=== PATIENT | female | born 1990 | race Two or more races ===

== ENCOUNTER 2019-02-27 13:44 | Emergency (ER) | payer BC, MEDICAID ==
[~2019-02-27] VITALS: Ht 149.9 cm; Wt 59.0 kg
[2019-02-27 15:31] LABS: Albumin 3.8 g/dL (3.4-5.0); Calcium 8.7 mg/dL (8.5-10.1); Potassium 3.9 mmol/L (3.5-5.1)
[2019-02-27 15:33] LABS: Bilirubin, Total 0.6 mg/dL (0.2-1.0); Total Protein 7.5 g/dL (6.4-8.2)
[2019-02-27 17:24] LABS: Basophils # (auto) 0 uL; Basophils % (auto) 0.6 % (0.0-2.0); Eosinophils # (auto) 0 uL; Eosinophils % (auto) 0.5 % (0.0-7.0); Hematocrit 43.2 % (36.0-46.0); Hemoglobin 14.1 g/dL (12.2-16.2); Lymphocytes # (auto) 1.4 uL; Lymphocytes % (auto) 20.9 % (10.0-50.0); Mean Corpuscular Hemoglobin 29.3 pg (28.0-32.0); Mean Corpuscular Hgb Conc. 32.7 g/dL (32.0-36.0); Mean Corpuscular Volume 89.5 fL (80.0-100.0); Monocytes # (auto) 0.6 uL; Monocytes % (auto) 8.8 % (0.0-12.0); Neutrophils # (auto) 4.6 uL; Neutrophils % (auto) 69.2 % (37.0-80.0); Platelet Count (auto) 262 10^3/uL (140-450); Red Blood Cells 4.83 10^6/uL (4.0-5.20); Red Cell Distribution Width 16.8 % (11.8-14.3); White Blood Cell 6.7 10^3/uL (4.4-10.8)
[2019-02-27 17:46] LABS: Urine Bacteria FEW /hpf (None Seen); Urine Blood TRACE /uL (Negative); Urine Mucus FEW (None Seen); Urine Specific Gravity 1.021 (1.001-1.035); Urine WBC 1 /hpf (0 - 5)
[2019-02-27 19:00] VITALS: BP 107/56
== END 2019-02-28 00:07 | disposition home or self-care (01) ==
LOC: ER 13:49
DX: M54.2 Cervicalgia (principal); J02.9 Acute pharyngitis, unspecified; E07.89 Other specified disorders of thyroid; R22.1 Localized swelling, mass and lump, neck
CPT/HCPCS: 36415; 70491; 76536; 80053; 81001; 81025; 84436; 84443; 84480; 85025; 94761

== ENCOUNTER 2019-02-28 12:41 | Inpatient (IN) | payer MEDICAID ==
[~2019-02-28] VITALS: Ht 149.9 cm; Wt 61.5 kg
[2019-02-28 13:54] LABS: Basophils # (auto) 0.1 uL; Basophils % (auto) 0.7 % (0.0-2.0); Eosinophils # (auto) 0.1 uL; Eosinophils % (auto) 0.7 % (0.0-7.0); Hematocrit 42.9 % (36.0-46.0); Hemoglobin 14.1 g/dL (12.2-16.2); Lymphocytes # (auto) 1.3 uL; Lymphocytes % (auto) 18.4 % (10.0-50.0); Mean Corpuscular Hemoglobin 29.4 pg (28.0-32.0); Mean Corpuscular Hgb Conc. 32.8 g/dL (32.0-36.0); Mean Corpuscular Volume 89.6 fL (80.0-100.0); Monocytes # (auto) 0.8 uL; Monocytes % (auto) 10.3 % (0.0-12.0); Neutrophils # (auto) 5.1 uL; Neutrophils % (auto) 69.9 % (37.0-80.0); Nucleated Red Blood Cells % 0.1 %; Platelet Count (auto) 262 10^3/uL (140-450); Red Blood Cells 4.79 10^6/uL (4.0-5.20); Red Cell Distribution Width 16.7 % (11.8-14.3); White Blood Cell 7.3 10^3/uL (4.4-10.8)
[2019-02-28 14:10] LABS: Albumin 3.5 g/dL (3.4-5.0); Calcium 9.1 mg/dL (8.5-10.1); Potassium 4.2 mmol/L (3.5-5.1)
[2019-02-28 14:14] LABS: BUN/Creatinine Ratio 27.9; Bilirubin, Total 0.3 mg/dL (0.2-1.0)
[2019-02-28] MEDS ORDERED: ONDANSETRON HCL 4 MG/2 ML VIAL IV PRN (14:15)
[2019-02-28 14:35] LABS: Beta HCG, Quantitative < 1 mlU/mL (1-3); Thyroid Stimulating Hormone 0.61 uIU/mL (0.358-3.74)
[2019-02-28] MEDS ORDERED: ACETAMINOPHEN 325 MG TAB PO ONE ×2 (15:12→15:15)
--- NOTE | 2019-02-28 16:50 | NUR ---
MED/SURG admit from ER LEONIE QUACH admitted to Telemetry unit after SBAR received. Patient oriented to Genny Valdez, primary RN, unit, room, bed, and unit policies regarding patient care and visiting hours.PATIENT weighed by bedscale and encouraged to call if they need something. All questions and concerns addressed, patient verbalized understanding. Note:
[2019-02-28 17:18] VITALS: BP 113/67
[2019-02-28 17:40] VITALS: BP 113/67
[2019-02-28] MEDS: HYDROcodone-ACET 5/325MG TAB PO PRN (18:54)
--- NOTE | 2019-02-28 19:26 | NUR ---
Opening Shift Note Assumed care of patient, awake and alert. No S/S of distress/SOB or pain. Instructed on POC and to call for assist PRN, will continue to monitor for changes Q1hr and PRN.
[2019-02-28 22:00] VITALS: BP 113/63
[2019-03-01] MEDS: HYDROcodone-ACET 5/325MG TAB PO PRN (05:30)
[2019-03-01 05:42] VITALS: BP 101/57
--- NOTE | 2019-03-01 07:05 | NUR ---
Opening Shift Note Report received and rounding completed. Patient observed awake, alert, and without S/S of distress. Patient reports no pain, trouble swallowing, or other issues. She stated she is ready to go home today. This RN introduced and POC discussed, call vences within reach and patient understood to call if needed.
[2019-03-01 08:07] VITALS: BP 96/58
[2019-03-01 08:10] VITALS: BP 96/58
[2019-03-01 12:42] VITALS: BP 105/69
[2019-03-01 13:06] VITALS: BP 96/58
--- NOTE | 2019-03-01 13:45 | NUR ---
Discharge Note Discharge instructions given as ordered. Encourage to follow up with PMD as instructed. All questions and concerns addressed. Patient verbalized understanding. Medication reconciliation form completed and copy given to patient. IV removed with catheter intact, pressure dressing applied. Patient walked off floor with family member with all personal belongings. No distress noted at time of departure.
== END 2019-03-01 13:47 | disposition home or self-care (01) | DRG 385 ==
LOC: ER 12:46 → OVERFLOW 12:47 → WEST WING 16:53
PROVIDERS: ADMIT Internal Medicine; ATTEND Internal Medicine
PROC: 0GBH3ZX Excision of Right Thyroid Gland Lobe, Percutaneous Approach, Diagnostic (ICD-10-PCS; principal; 2019-02-28)
DX: R22.1 Localized swelling, mass and lump, neck (principal); F17.210 Nicotine dependence, cigarettes, uncomplicated; Z80.8 Family history of malignant neoplasm of other organs or systems; Z83.3 Family history of diabetes mellitus
CPT/HCPCS: 10022; 36415; 76942; 80053; 83970; 84443; 84702; 85025; G0378; J2405

== ENCOUNTER 2020-04-30 08:32 | Emergency (ER) | payer MEDICAID ==
[~2020-04-30] VITALS: Ht 149.9 cm; Wt 59.0 kg
[2020-04-30 08:55] VITALS: BP 95/71
[2020-04-30] MEDS ORDERED: cefTRIAXone SOD 1,000 MG VL IM ONE (10:00)
== END 2020-04-30 10:54 | disposition home or self-care (01) ==
LOC: ER 08:32
DX: J03.90 Acute tonsillitis, unspecified (principal); J20.9 Acute bronchitis, unspecified; Z20.828 Contact with and (suspected) exposure to other viral communicable diseases
CPT/HCPCS: 36415; 71045; 87426; 96372; 99284; C9803; J0696; U0003

== ENCOUNTER 2020-07-31 08:44 | Emergency (ER) | payer MEDICAID ==
[~2020-07-31] VITALS: Ht 149.9 cm; Wt 54.4 kg
[2020-07-31 08:56] VITALS: BP 124/76
== END 2020-07-31 09:42 | disposition home or self-care (01) ==
LOC: ER 08:44
DX: J01.90 Acute sinusitis, unspecified (principal); R07.9 Chest pain, unspecified
CPT/HCPCS: 71046

== ENCOUNTER 2021-02-20 15:21 | Emergency (ER) | payer MEDICAID ==
[~2021-02-20] VITALS: Ht 149.9 cm; Wt 59.0 kg
[2021-02-20 16:38] VITALS: BP 118/75
[2021-02-20] MEDS ORDERED: IBUPROFEN 600 MG TAB PO ONE (17:15)
[2021-02-20] MEDS ORDERED: TETANUS-DIPTH-ACEL PERTUSSIS 0.5ML SYR Tdap IM ONE (17:15)
== END 2021-02-20 17:43 | disposition home or self-care (01) ==
LOC: ER 15:21
DX: S01.23XA Puncture wound without foreign body of nose, initial encounter (principal); S01.25XA Open bite of nose, initial encounter; W54.0XXA Bitten by dog, initial encounter; Y93.89 Activity, other specified; Y92.89 Other specified places as the place of occurrence of the external cause; Y99.8 Other external cause status
CPT/HCPCS: 70160; 90471; 90715

== ENCOUNTER 2023-01-17 12:23 | Emergency (ER) | payer MEDICAID ==
[~2023-01-17] VITALS: Ht 149.9 cm; Wt 56.9 kg
[2023-01-17 14:53] VITALS: BP 123/85; PULSE 87; RESP 18; TEMP 97.5; O2SAT 99
[2023-01-17] MEDS ORDERED: ceFAZolin 2 GM/D5W100ml 100 ML IV ONE (15:45)
[2023-01-17] MEDS ORDERED: LIDOCAINE 5% TOPICAL PATCH TOP ONE (15:45)
[2023-01-17] MEDS ORDERED: cefTRIAXone SOD 1,000 MG VL IM ONE (15:45)
[2023-01-17] MEDS ORDERED: KETOROLAC TROMETH 30 MG/ML 1ML VIAL IM ONE (15:45)
[2023-01-17] MEDS ORDERED: ACETAMINOPHEN 500 MG TAB PO ONE (15:45)
[2023-01-17] MEDS ORDERED: LIDO5CRE14 EX ×3 (17:45→17:58)
[2023-01-17] MEDS ORDERED: IBUP-1454 PO ×3 (17:45→17:58)
== END 2023-01-17 17:45 | disposition home or self-care (01) ==
LOC: ER 12:23
DX: S01.81XA Laceration without foreign body of other part of head, initial encounter (principal); M54.2 Cervicalgia; W01.0XXA Fall on same level from slipping, tripping and stumbling without subsequent striking against object, initial encounter; Y93.89 Activity, other specified; Y92.89 Other specified places as the place of occurrence of the external cause; Y99.8 Other external cause status
CPT/HCPCS: 96365; 96372; 99284; J0696; J1885